=== PATIENT | male | born 1975 | race Asian ===

== ENCOUNTER 2016-11-19 13:26 | Emergency (ER) | payer OTHER ==
[~2016-11-19] VITALS: Ht 167.6 cm; Wt 75.5 kg
[~2016-11-19 13:26] MED LIST: CIPR500T4 PO
[2016-11-19 13:54] VITALS: Ht 167.6 cm; Wt 75.5 kg
--- NOTE | 2016-11-19 14:32 | ERD ---
ER Documentation Chief Complaint Date/Time DATE: 11/19/16 TIME: 14:18 Chief Complaint Complains of blood in stool HPI 41-year-old male presents to the emergency department with a complaint of blood in stool. Stated that he believes he had a food poisoning last Saturday and after that developed a constipation the next day, Saturday. Stated that he has been straining his stool, took Mylanta, Tums, Pepto-Bismol then developed diarrhea with this. Stated that he has 4 episode of blood in stool yesterday. Stated that the last bowel movement was this morning and there was no blood in his stool. Denies active bleeding at this time. Denies headache, loss of consciousness, dizziness, blurry vision, changes in vision, photophobia, facial pain, ear pain, throat pain, difficulty swallowing, neck pain, shoulder pain, chest pain, cough, hemoptysis, abdominal pain, back pain, loss of appetite, nausea, vomiting, hematochezia, urinary symptoms, bladder and bowel incontinences, extremity weakness, extremity tenderness, numbness or tingling sensation, difficulty walking, recent travel, recent exposure to illness, recent antibiotic use in the last 3 months, fever, chills. Allergy: No known drug allergies. PMH: Denies. Medications: Not taking any prescription medications. Surgery: Denies. Family history: Denies family history of cancers and a colon cancer. Primary Social History: Works as a manager enrollment. Occasional drinks alcoholic beverages per Denies smoking, use of illegal drugs. ROS All systems reviewed and are negative except as per history of present illness. Medications Home Meds Active Scripts Ciprofloxacin Hcl* (Ciprofloxacin Hcl*) 500 Mg Tablet, 500 MG PO BID for 7 Days , TAB Prov:JOHNNY OROZCO DO 12/11/15 Allergies Allergies: Coded Allergies: No Known Allergy (Unverified , 12/11/15) PMhx/Soc Medical and Surgical Hx: pt denies Medical Hx, pt denies Surgical Hx Hx Alcohol Use: No Hx Substance Use: No Hx Tobacco Use: No Physical Exam Vitals Vital Signs Date Time Temp Pulse Resp B/P Pulse Ox O2 Delivery O2 Flow Rate FiO2 11/19/16 13:54 983.1 56 20 117/69 96 Physical Exam CONSTITUTIONAL: Well-appearing; well-nourished; in no apparent distress. HEAD: Normocephalic; atraumatic. EYES: Conjunctiva clear, sclera non-icteric, EOM intact. PERRL Ears: Hearing intact. EACs clear, TMs non-bulging, non-inflamed, translucent & mobile, ossicles normal appearance, No obstructions, no erythema, no discharges Nose: No obstructions. No polyps. No external lesions. Mucosa non-inflamed. No external lesions, septum and turbinates normal. No rhinorrhea. No discharges. Frontal sinus is non-tender to palpation. Maxillary sinus is non-tender to palpation. MOUTH: Moist mucous membranes, no lesion, no obstructions, no vesicles, no thrush, patent airway Throat: Uvula in midline. Right tonsil is +1 with no erythema, no exudate. Left tonsil is +1 with no erythema, no exudate. Tolerating secretions well. Good gag reflex. Patent airway. Neck: Supple, without lesions, bruits, or adenopathy. No mass. Thyroid non- enlarged and non-tender to palpation. CHEST: Symmetrical chest. Respirations even and not labored. No retractions noted. CARDIOVASCULAR: Normal S1, S2. RRR. No murmurs, gallops. RESPIRATORY: Normal chest excursion with respiration; breath sounds clear and equal bilaterally; no wheezes, rhonchi, or rales. Breathing even and unlabored. Speaking in clear, full, and complete sentences w/ ease. ABDOMEN: Normal bowel sounds normal. Soft, round, non-distended, non-guarding, no tenderness, no rebound, no organomegaly, no masses, no pulsating abdominal mass. No hernia. No peritoneal signs. Rectal exam: No active bleeding. No evidence of external hemorrhoids. Patent. : No CVA tenderness. BACK: Symmetrical shoulder. Spine is midline without deformity, tenderness. No evidence of trauma or deformity. PELVIS: Stable pelvis. No evidence of trauma or deformity. MUSCULOSKELETAL: Normal gait and station. No misalignment, asymmetry, crepitation, defects, tenderness, masses, effusions, decreased range of motion, instability, atrophy or abnormal strength or tone in the head, neck, spine, ribs , pelvis or extremities. No calf tenderness. NEUROVASCULAR: Distal pulses are present. Pedal pulse are present, equal, and normal. Capillary refills are < 2 seconds. NEUROLOGIC: Alert and oriented x4. Speaks full and clear sentences. Cranial Nerves II-XII normal. Sensation to pain, touch, and proprioception normal. Grossly unremarkable. No neurologic deficits. Romberg test is negative. PSYCHOLOGICAL: The patients mood and manner are appropriate. No hallucinations , delusions. Not SI. Not HI. Has the capacity to decide for self SKIN: Normal for age and ethnicity; warm; dry; good turgor; no apparent lesions or exudates. No rashes, hives, discoloration. Intact. Procedures/MDM Examination: Please see physical examination. Disease process, medical treatment was explained to the patient and family member. They verbalized understanding and agreed with the diagnostic tests, medical treatment, and follow-up care. Procedure/Test: Stool for occult blood is positive. Re-evaluation: Denies headache, dizziness, blurry vision, neck pain, shoulder pain, chest pain, abdominal pain, nausea, vomiting, active bleeding. No episode of emesis or diarrhea here in the emergency department. Respirations even and unlabored. Lung sounds are clear to auscultation. There is no right upper/right lower/epigastric/left upper/left lower abdominal tenderness and light and deep palpation. Negative Rovsing's sign. Negative [place] sign. No CVA tenderness. No peritoneal signs. Skin appears normal. No evidence of dehydration. Consultation: None. Differential diagnosis: Rectal bleeding versus ulcerative colitis versus infectious diarrhea versus food poisoning versus constipation versus melena versus internal hemorrhoids versus external hemorrhoids. Medical decision m[age]-year-old male presents to the emergency department with a complaint of blood in stool. Stated that he believes he had a food poisoning last Saturday and after that developed a constipation the next day, Saturday. Stated that he has been straining his stool, took Mylanta, Tums, Pepto-Bismol then developed diarrhea with this. Stated that he has 4 episode of blood in stool yesterday. Stated that the last bowel movement was this morning and there was no blood in his stool. Denies active bleeding at this time. Patient's complaint, patient's history about his complaint, my physical findings, my reevaluation are consistent with my final diagnosis of rectal bleeding, diarrhea. Patient stated that he believes he does not need any blood works and or diagnostic tests which might include stool samples, imagings. Stated that he believes he could go home and be treated with antibiotics prophylactically. Advised to follow-up with his primary care physician in the next 24-48 hours. Also advised to have his primary care physician to refer him to a hooker laster if his symptoms persist or get worse. Medications prescribed are the following: Flagyl. Ciprofloxacin. Zofran. Tylenol. Patient and family member are made aware of the side effects and adverse reactions of the medications prescribed. Instructed on when to seek emergent and medical attention in case allergic/anaphylactic reactions or severe side effects and or adverse reactions to medications. Patient and family member verbalized understanding. Patient instructed Instructed to follow-up with his PCP in 24-48 hours. PCP to refer patient to hooker laster if his symptoms get worse. Instructed to Call 911 for chest pain, shortness of breath. Advised to come back here in ED as soon as possible for severity of symptoms which includes but not limited to: any new symptoms; shortness of breath/difficulty of breathing; cardiovascular changes; severe gastrointestinal symptoms; signs and symptoms of bleeding and or infection; signs of compartment syndrome/neurovascular changes; neurological changes/deficits. Patient and family member verbalized understanding. Upon discharge, patient is alert and oriented x 4, speaks full and clear sentences, denies pain, has no neurological deficits, has no neurovascular deficits, difficulty of breathing. Breathing even and unlabored. Lung sounds are clear to auscultation. Not in distress. Appears comfortable. Ambulatory with steady gait. Appears satisfied with care provided here in ED. Departure Diagnosis: Primary Impression: Occult blood in stools Additional Impression: Diarrhea Condition: Stable Additional Instructions: Patient instructed Instructed to follow-up with his PCP in 24-48 hours. PCP to refer patient to hooker laster if his symptoms get worse. Instructed to Call 911 for chest pain, shortness of breath. Advised to come back here in ED as soon as possible for severity of symptoms which includes but not limited to: any new symptoms; shortness of breath/difficulty of breathing; cardiovascular changes; severe gastrointestinal symptoms; signs and symptoms of bleeding and or infection; signs of compartment syndrome/neurovascular changes; neurological changes/deficits. Patient and family member verbalized understanding. RODOLFO LOPEZ November 19, 2016 14:32
[2016-11-19] MEDS ORDERED: CIPR500T4 PO (14:38)
[2016-11-19] MEDS ORDERED: ONDA4TAB14 PO (14:39)
[2016-11-19] MEDS ORDERED: METR500T PO (14:39)
== END 2016-11-19 15:02 | disposition home or self-care (01) ==
LOC: FTE 13:26
DX: R19.5 Other fecal abnormalities (principal); R19.7 Diarrhea, unspecified
CPT/HCPCS: 99284